=== PATIENT | male | born 1965 | race Caucasian/White ===

== ENCOUNTER 2019-03-30 08:44 | Emergency (ER) | payer BC ==
[2019-03-30] MEDS ORDERED: Tetracaine HCl/PF 0.5% 4 ML Bottle EYELF ONE (09:07)
--- NOTE | 2019-03-30 09:21 | EDM.PDOC ---
ED HPI GENERAL MEDICAL PROBLEM - General Chief Complaint: Eye Problems Stated Complaint: SOMETHING IN EYE Time Seen by Provider: 03/30/19 09:02 - History of Present Illness INITIAL COMMENTS - FREE TEXT/NARRATIVE: Patient presents to the ED at for the evaluation of a foreign body sensation of the left eye. The patient patient states he noticed the sensation last night. He did try flushing the left eye with copious amounts of water. He thought it was removed, but this morning, he felt the sensation again. He denies any previous left eye injury or trauma. No previous eye surgeries. He is not sure what may be causing his symptoms. He states he was not working with any metal or wood. Has not been out in the wind. He denies any visual field disturbances. No blurry vision. No headache. Onset Date: 03/29/19 - Related Data Allergies Allergy/AdvReac Type Severity Reaction Status Date / Time No Known Allergies Allergy Verified 03/30/19 09:02 Home Meds: Home Meds metFORMIN HCl [Glucophage] 1,500 mg PO DAILY 03/30/19 [History] Past Medical History Endocrine/Metabolic History: Reports: Diabetes, Type II Social & Family History - Tobacco Use Smoking Status *Q: Unknown Ever Smoked ED ROS GENERAL - Review of Systems Review Of Systems: See Below Constitutional: Denies: Fever, Chills HEENT: Reports: Glasses. Denies: Eye Discharge, Eye Pain, Vision Change Respiratory: Denies: Shortness of Breath, Cough Cardiovascular: Denies: Chest Pain, Palpitations Skin: Reports: No Symptoms Neurological: Reports: No Symptoms ED EXAM GENERAL W FULL EYE - Physical Exam Exam: See Below Exam Limited By: No Limitations General Appearance: Alert, No Apparent Distress Eye Exam: Bilateral Eye: EOMI, Normal Inspection, PERRL Eyelids: Bilateral: Normal Appearance Conjunctiva & Sclera: Right: Normal Appearance, Left: Foreign Body Cornea Exam: Bilateral: Normal Appearance Extraocular Movements: Bilateral: Intact Pupils: Normal Accommodation Pupillary Size: Bilateral: 3 mm Pupillary Reaction: Bilateral: Brisk Respiratory/Chest: No Respiratory Distress, Lungs Clear, Normal Breath Sounds Cardiovascular: Normal Peripheral Pulses, Regular Rate, Rhythm Neurological: Alert, Oriented Skin Exam: Warm, Dry, Intact, Normal Color ED EYE w/ Add Procedure - Eye Procedure Alcaine Drops Administered: Yes Eye FB Removal: Removal w/ Cotton Swab Progress: Foreign body removed with cotton tip applicator. Patient tolerated well, no complications. Course - Vital Signs Last Recorded V/S: Last Vital Signs Temp 36.7 C 03/30/19 08:52 Pulse 72 03/30/19 08:52 Resp 16 03/30/19 08:52 BP 142/72 H 03/30/19 08:52 Pulse Ox 95 03/30/19 08:52 - Orders/Labs/Meds Meds: Medications Discontinued Medications Generic Name Dose Route Start Last Admin Trade Name Freq PRN Reason Stop Dose Admin Tetracaine HCl 1 ml 03/30/19 09:07 03/30/19 09:13 Tetracaine 0.5% Steri-Unit Reba EYELF 03/30/19 09:08 1 ml ONETIME ONE Administration Departure - Departure Time of Disposition: 09:23 Disposition: Home, Self-Care 01 Condition: Good Clinical Impression: Foreign body of eyelid, left - Discharge Information *PRESCRIPTION DRUG MONITORING PROGRAM REVIEWED*: Not Applicable *COPY OF PRESCRIPTION DRUG MONITORING REPORT IN PATIENT POOL: Not Applicable Instructions: Eye Foreign Body Referrals: Shanique Damon [employer] SUPERINTENDENT [Primary Care Provider] - Additional Instructions: 1. Stay well hydrated and rest 2. See your PCP as symptoms warrant - Problem List Review Problem List Initiated/Reviewed/Updated: Yes - Assessment/Plan Assessment:: Foreign body, Eye, Left Plan: Procedure discussed with patient. FB removed without problems. Recommend not rubbing the eye to avoid and residual irritation. See PCP as symptoms warrant.
== END 2019-03-30 09:35 | disposition home or self-care (01) ==
LOC: VM.ED 08:44
DX: T15.12XA Foreign body in conjunctival sac, left eye, initial encounter (principal); X58.XXXA Exposure to other specified factors, initial encounter; E11.9 Type 2 diabetes mellitus without complications
CPT/HCPCS: 65205; 99282